=== PATIENT | female | born 1990 | race Caucasian/White ===

== ENCOUNTER 2017-08-08 10:56 | Emergency (ER) | payer SELFPAY ==
[~2017-08-08] VITALS: Ht 165.1 cm; Wt 61.2 kg
--- NOTE | 2017-08-08 11:00 | ED General ---
General Stated Complaint: VAG BLEEDING Allergies and Home Medications Allergies Coded Allergies: Penicillins (Verified Allergy, Unknown, 08/08/17) Home Medications No Active Prescriptions or Reported Meds Physical Exam Vital Signs Vital Signs - First Documented 08/08/17 11:01 Temp 98.1 Pulse 76 Resp 18 B/P (MAP) 112/83 (93) Pulse Ox 100 Capillary Refill : Progress/Results/Core Measures Suspected Sepsis SIRS Temperature: Pulse: Respiratory Rate: Laboratory Tests 08/08/17 11:16: White Blood Count 7.1 Blood Pressure / Mean: Laboratory Tests 08/08/17 11:16: Creatinine 0.74, Platelet Count 311, Total Bilirubin 0.9 Results/Orders Lab Results Laboratory Tests Test 08/08/17 11:16 Range/Units White Blood Count 7.1 4.3-11.0 10^3/uL Red Blood Count 4.26 L 4.35-5.85 10^6/uL Hemoglobin 11.8 11.5-16.0 G/DL Hematocrit 37 35-52 % Mean Corpuscular Volume 86 80-99 FL Mean Corpuscular Hemoglobin 28 25-34 PG Mean Corpuscular Hemoglobin Concent 32 32-36 G/DL Red Cell Distribution Width 19.3 H 10.0-14.5 % Platelet Count 311 130-400 10^3/uL Mean Platelet Volume 8.4 7.4-10.4 FL Neutrophils (%) (Auto) 68 42-75 % Lymphocytes (%) (Auto) 23 12-44 % Monocytes (%) (Auto) 7 0-12 % Eosinophils (%) (Auto) 1 0-10 % Basophils (%) (Auto) 0 0-10 % Neutrophils # (Auto) 4.8 1.8-7.8 X 10^3 Lymphocytes # (Auto) 1.7 1.0-4.0 X 10^3 Monocytes # (Auto) 0.5 0.0-1.0 X 10^3 Eosinophils # (Auto) 0.1 0.0-0.3 10^3/uL Basophils # (Auto) 0.0 0.0-0.1 10^3/uL Sodium Level 137 135-145 MMOL/L Potassium Level 4.2 3.6-5.0 MMOL/L Chloride Level 106 98-107 MMOL/L Carbon Dioxide Level 19 L 21-32 MMOL/L Anion Gap 12 5-14 MMOL/L Blood Urea Nitrogen 9 7-18 MG/DL Creatinine 0.74 0.60-1.30 MG/DL Estimat Glomerular Filtration Rate > 60 BUN/Creatinine Ratio 12 Glucose Level 84 70-105 MG/DL Calcium Level 9.3 8.5-10.1 MG/DL Total Bilirubin 0.9 0.1-1.0 MG/DL Aspartate Amino Transf (AST/SGOT) 77 H 5-34 U/L Alanine Aminotransferase (ALT/SGPT) 78 H 0-55 U/L Alkaline Phosphatase 74 40-136 U/L Total Protein 8.0 6.4-8.2 GM/DL Albumin 4.0 3.2-4.5 GM/DL Human Chorionic Gonadotropin, Quant < 5 <5 MIU/ML Serum Test, Qualitative NEGATIVE NEGATIVE My Orders Orders - CHECO EASON APRN Cbc With Automated Diff (08/08/17 10:57) Comprehensive Metabolic Panel (08/08/17 10:57) Ua Culture If Indicated (08/08/17 10:57) Hcg,Qualitative Serum (08/08/17 10:57) Hcg,Quantitative (08/08/17 11:02) Drug Screen Stat (Urine) (08/08/17 11:02) Wet Prep (08/08/17 11:42) Neisseria Gonorrhea Swab (08/08/17 11:42) Genital Culture (08/08/17 11:42) Chlamydia Trachomatis Urine (08/08/17 11:42) Vital Signs/I&O 08/08/17 08/08/17 11:01 11:54 Temp 98.1 Pulse 76 87 Resp 18 16 B/P (MAP) 112/83 (93) 125/78 Pulse Ox 100 98 Capillary Refill : Departure Communication (Admissions) 11:00 I have seen the patient with Fred SANCHEZ and agree with the assessment and plan. Patient arrives to ER per [facility] [address] [facility] [place] with reports of vaginal bleeding. She estimates herself to be between 3 and 4 months though she has not had a confirmed test. She is only used one tampon. She is traveling from [place] via bicycle to [place] when she developed the vaginal bleeding and is concerned this may represent a miscarriage. She believes she can feel the baby kicking and moving. Departure-Patient Inst. Referrals: NO,LOCAL PHYSICIAN (PCP/Family) Primary Care Physician Scripts No Active Prescriptions or Reported Meds CHECO EASON APRN Aug 08, 2017 11:00
--- NOTE | 2017-08-08 11:06 | ED GU-Female ---
General Stated Complaint: VAG BLEEDING Source: patient, EMS Exam Limitations: no limitations (FRED MARTÍNEZ STUDENT) History of Present Illness Date Seen by Provider: Aug 08, 2017 Time Seen by Provider: 10:59 Initial Comments Patient is a 27-year-old female who was brought to the emergency room by [facility] with complaints of vaginal bleeding. EMS reports that her are traveling through town on foot to [place] and they were at a local bank when she started to have vaginal bleeding and called EMS. She reports that she thinks she is 3-4 months but has not had a test to confirm this but can feel the baby moving. She is unsure of her last menstrual period but reports this bleeding to be very similar to her menstrual cycle. She reports that her and her boyfriend are homeless. Timing/Duration: just prior to arrival Severity/Quality: other (denies pain) Activities at Onset: none Sexual [place] Housing History: single partner Associated Symptoms: No fever/chills, No nausea/vomiting, No urinary frequency (FRED MARTÍNEZ) Allergies and Home Medications Allergies Coded Allergies: Penicillins (Verified Allergy, Unknown, 08/08/17) Home Medications No Active Prescriptions or Reported Meds Patient Home Medication List Home Medication List Reviewed: Yes (FRED MARTÍNEZ STUDENT) Review of Systems Constitutional: No see HPI, No fever, No malaise EENTM: no symptoms reported Respiratory: no symptoms reported Cardiovascular: see HPI; No chest pain Gastrointestinal: see HPI; No abdominal pain, No diarrhea, No nausea, No vomiting Genitourinary: see HPI; denies dysuria, denies frequency, denies pain, denies urgency Musculoskeletal: no symptoms reported Skin: see HPI; No rash Psychiatric/Neurological: See HPI; Denies Anxiety, Denies Depressed Endocrine: See HPI; Denies Excessive Sweating, Denies Flushing Hematologic/Lymphatic: See HPI, Anemia (FRED MARTÍNEZ STUDENT) Past Ssjclaw-Crgagg-Kykyjo Hx Past Med/Social Hx: Reviewed Nursing Past Med/Soc Hx (FRED MARTÍNEZ STUDENT) Family Medical History Reviewed Nursing Family Hx (FRED MARTÍNEZ) Physical Exam Vital Signs Vital Signs - First Documented 08/08/17 11:01 Temp 98.1 Pulse 76 Resp 18 B/P (MAP) 112/83 (93) Pulse Ox 100 (EASON,PETER J TRANSLATOR/INTERPRETER) Vital Signs Capillary Refill : (FRED MARTÍNEZ STUDENT) General Appearance: WD/WN, no apparent distress HEENT: normal ENT inspection, TMs normal, pharynx normal Neck: full range of motion, supple, normal inspection Cardiovascular: normal peripheral pulses, regular rate, rhythm, no edema, no murmur Respiratory: chest non-tender, lungs clear, normal breath sounds, no accessory muscle use Gastrointestinal: normal bowel sounds, non tender, soft, no pulsatile mass Back: normal inspection, no CVA tenderness, no vertebral tenderness Extremities: non-tender, normal inspection Neurologic/Psychiatric: alert, normal mood/affect, oriented x 3 Skin: normal color, warm/dry Lymphatic: no adenopathy (FRED MARTÍNEZ STUDENT) Progress/Results/Core Measures Suspected Sepsis SIRS Temperature: Pulse: Respiratory Rate: Blood Pressure / Mean: (FRED MARTÍNEZ STUDENT) Results/Orders Lab Results Laboratory Tests Test 08/08/17 11:16 Range/Units White Blood Count 7.1 4.3-11.0 10^3/uL Red Blood Count 4.26 L 4.35-5.85 10^6/uL Hemoglobin 11.8 11.5-16.0 G/DL Hematocrit 37 35-52 % Mean Corpuscular Volume 86 80-99 FL Mean Corpuscular Hemoglobin 28 25-34 PG Mean Corpuscular Hemoglobin Concent 32 32-36 G/DL Red Cell Distribution Width 19.3 H 10.0-14.5 % Platelet Count 311 130-400 10^3/uL Mean Platelet Volume 8.4 7.4-10.4 FL Neutrophils (%) (Auto) 68 42-75 % Lymphocytes (%) (Auto) 23 12-44 % Monocytes (%) (Auto) 7 0-12 % Eosinophils (%) (Auto) 1 0-10 % Basophils (%) (Auto) 0 0-10 % Neutrophils # (Auto) 4.8 1.8-7.8 X 10^3 Lymphocytes # (Auto) 1.7 1.0-4.0 X 10^3 Monocytes # (Auto) 0.5 0.0-1.0 X 10^3 Eosinophils # (Auto) 0.1 0.0-0.3 10^3/uL Basophils # (Auto) 0.0 0.0-0.1 10^3/uL Sodium Level 137 135-145 MMOL/L Potassium Level 4.2 3.6-5.0 MMOL/L Chloride Level 106 98-107 MMOL/L Carbon Dioxide Level 19 L 21-32 MMOL/L Anion Gap 12 5-14 MMOL/L Blood Urea Nitrogen 9 7-18 MG/DL Creatinine 0.74 0.60-1.30 MG/DL Estimat Glomerular Filtration Rate > 60 BUN/Creatinine Ratio 12 Glucose Level 84 70-105 MG/DL Calcium Level 9.3 8.5-10.1 MG/DL Total Bilirubin 0.9 0.1-1.0 MG/DL Aspartate Amino Transf (AST/SGOT) 77 H 5-34 U/L Alanine Aminotransferase (ALT/SGPT) 78 H 0-55 U/L Alkaline Phosphatase 74 40-136 U/L Total Protein 8.0 6.4-8.2 GM/DL Albumin 4.0 3.2-4.5 GM/DL Serum Test, Qualitative NEGATIVE NEGATIVE (CHECO EASON APRN) My Orders Orders - CHECO EASON APRN Cbc With Automated Diff (08/08/17 10:57) Comprehensive Metabolic Panel (08/08/17 10:57) Ua Culture If Indicated (08/08/17 10:57) Hcg,Qualitative Serum (08/08/17 10:57) Hcg,Quantitative (08/08/17 11:02) Drug Screen Stat (Urine) (08/08/17 11:02) Wet Prep (08/08/17 11:42) Neisseria Gonorrhea Swab (08/08/17 11:42) Genital Culture (08/08/17 11:42) Chlamydia Trachomatis Urine (08/08/17 11:42) (CHECO EASON APRN) Vital Signs/I&O 08/08/17 11:01 Temp 98.1 Pulse 76 Resp 18 B/P (MAP) 112/83 (93) Pulse Ox 100 (CHECO EASON APRN) Vital Signs/I&O Capillary Refill : (FRED MARTÍNEZ STUDENT) Departure Communication (Admissions) 11:00 I have seen the patient with Fred SANCHEZ and agree with the assessment and plan. Patient arrives to ER per [facility] [address] [facility] [place] with reports of vaginal bleeding. She estimates herself to be between 3 and 4 months though she has not had a confirmed test. She is only used one tampon. She is traveling from [place] via bicycle to [place] when she developed the vaginal bleeding and is concerned this may represent a miscarriage. She believes she can feel the baby kicking and moving. [id number] recommended a pelvic exam. Patient and her declined stating "were mostly just here for an ultrasound". They state "no one here has any compassion". We advised her that she was not and she states "well what have I been feeling move then?". They will sign out AGAINST MEDICAL ADVICE. (CHECO EASON APRN) Impression Primary Impression: Left against medical advice Disposition: 07 AGAINST MEDICAL ADVICE Condition: Against Medical Advice (,) Departure-Patient Inst. Referrals: NO,LOCAL PHYSICIAN (PCP/Family) Primary Care Physician Scripts No Active Prescriptions or Reported FRED Tejada STUDENT Aug 08, 2017 11:06 CHECO EASON APRN Aug 08, 2017 11:59
[2017-08-08 11:26] LABS: BASOPHILS % (AUTO) 0 % (0-10); EOSINOPHILS # (AUTO) 0.1 10^3/uL (0.0-0.3); EOSINOPHILS % (AUTO) 1 % (0-10); HEMATOCRIT 37 % (35-52); HEMOGLOBIN 11.8 G/DL (11.5-16.0); LYMPHOCYTES # (AUTO) 1.7 X 10^3 (1.0-4.0); LYMPHOCYTES % (AUTO) 23 % (12-44); MEAN CORPUSCULAR HEMOGLOBIN 28 PG (25-34); MEAN CORPUSCULAR HGB CONC 32 G/DL (32-36); MEAN CORPUSCULAR VOLUME 86 FL (80-99); MEAN PLATELET VOLUME 8.4 FL (7.4-10.4); MONOCYTES # (AUTO) 0.5 X 10^3 (0.0-1.0); MONOCYTES % (AUTO) 7 % (0-12); NEUTROPHILS # (AUTO) 4.8 X 10^3 (1.8-7.8); NEUTROPHILS % (AUTO) 68 % (42-75); PLATELET COUNT 311 10^3/uL (130-400); RED BLOOD COUNT 4.26 10^6/uL (4.35-5.85); RED CELL DISTRIBUTION WIDTH 19.3 % (10.0-14.5); WHITE BLOOD COUNT 7.1 10^3/uL (4.3-11.0)
[2017-08-08 11:47] LABS: ALANINE AMINOTRANSFERASE 78 U/L (0-55); ALKALINE PHOSPHATASE 74 U/L (40-136); BILIRUBIN,TOTAL 0.9 MG/DL (0.1-1.0); BUN/CREATININE RATIO 12; CALCIUM 9.3 MG/DL (8.5-10.1); CARBON DIOXIDE 19 MMOL/L (21-32); CHLORIDE 106 MMOL/L (98-107); CREATININE SERUM 0.74 MG/DL (0.60-1.30); GFR ESTIMATED > 60; GLUCOSE 84 MG/DL (70-105); POTASSIUM 4.2 MMOL/L (3.6-5.0); SODIUM 137 MMOL/L (135-145)
[2017-08-08 11:54] VITALS: BP 125/78
== END 2017-08-08 11:54 | disposition left against medical advice (07) ==
LOC: ER 10:58
DX: N93.9 Abnormal uterine and vaginal bleeding, unspecified (principal); Z88.0 Allergy status to penicillin
CPT/HCPCS: 36415; 80053; 84702; 84703; 85025; 99283

== ENCOUNTER 2018-03-05 15:56 | Inpatient (IN) | payer MEDICAID, OTHER | END 2018-03-08 14:45 | disposition home or self-care (01) | LOC: ER 15:56 → LDRP 17:30 ==

== ENCOUNTER 2018-03-12 18:50 | Emergency (ER) | payer MEDICAID ==
[~2018-03-12] VITALS: Ht 165.1 cm; Wt 63.5 kg
[~2018-03-12 18:50] MED LIST: ALPR0.254 PO; CIPR-225 PO; DOCU100C37 PO; IBUP-1780 PO; METR500T PO; OXYC1TAB87 PO; Trimethoprim/Sulfamethoxazole PO
[2018-03-12] MEDS ORDERED: ACETAMINOPHEN 500 MG TAB (TYLENOL) PO STA (19:12)
[2018-03-12] MEDS ORDERED: IBUPROFEN 800 MG (MOTRIN) TAB PO STA (19:12)
[2018-03-12] MEDS ORDERED: RECEIVED CONTRAST (Hold Metformin) IV SCH (19:30)
[2018-03-12] MEDS ORDERED: IOHEXOL 350 MG/ML 100 ML (OMNIPAQUE 350) VIAL IV ONE (19:30)
[2018-03-12] MEDS ORDERED: NS 100 ML (IVPB) BAG IV ONE (19:30)
[2018-03-12 19:34] LABS: BASOPHILS % (AUTO) 0 % (0-10); EOSINOPHILS % (AUTO) 0 % (0-10); HEMATOCRIT 31 % (35-52); HEMOGLOBIN 10.5 G/DL (11.5-16.0); LYMPHOCYTES # (AUTO) 1.4 X 10^3 (1.0-4.0); LYMPHOCYTES % (AUTO) 11 % (12-44); MEAN CORPUSCULAR HEMOGLOBIN 30 PG (25-34); MEAN CORPUSCULAR HGB CONC 34 G/DL (32-36); MEAN CORPUSCULAR VOLUME 88 FL (80-99); MEAN PLATELET VOLUME 8.5 FL (7.4-10.4); MONOCYTES # (AUTO) 0.8 X 10^3 (0.0-1.0); MONOCYTES % (AUTO) 6 % (0-12); NEUTROPHILS # (AUTO) 10.5 X 10^3 (1.8-7.8); NEUTROPHILS % (AUTO) 83 % (42-75); PLATELET COUNT 309 10^3/uL (130-400); RED BLOOD COUNT 3.52 10^6/uL (4.35-5.85); RED CELL DISTRIBUTION WIDTH 14.8 % (10.0-14.5); WHITE BLOOD COUNT 12.7 10^3/uL (4.3-11.0)
[2018-03-12 19:47] LABS: INR 1.1 (0.8-1.4); PROTHROMBIN TIME PATIENT 14.5 SEC (12.2-14.7)
[2018-03-12 19:54] LABS: ALANINE AMINOTRANSFERASE 16 U/L (0-55); ALBUMIN 2.8 GM/DL (3.2-4.5); ALKALINE PHOSPHATASE 118 U/L (40-136); AMYLASE 78 U/L (25-125); BILIRUBIN,TOTAL 0.4 MG/DL (0.1-1.0); BUN/CREATININE RATIO 10; CALCIUM 9.7 MG/DL (8.5-10.1); CARBON DIOXIDE 19 MMOL/L (21-32); CHLORIDE 107 MMOL/L (98-107); CREATININE SERUM 1.26 MG/DL (0.60-1.30); GFR ESTIMATED 51; GLUCOSE 105 MG/DL (70-105); LIPASE 46 U/L (8-78); MAGNESIUM 1.8 MG/DL (1.8-2.4); POTASSIUM 4.1 MMOL/L (3.6-5.0); SODIUM 139 MMOL/L (135-145); TOTAL PROTEIN 7.1 GM/DL (6.4-8.2)
--- NOTE | 2018-03-12 19:55 | NUR ---
HEARD SHOUTS AND CURSE WORDS FROM PT'S ROOM, ENTERED ROOM TO FIND THE PT CURSING AT DR. CROFT, STATING SHE WANTED TO CUT HER HEAD OFF. BEHAVIOR EXPLAINED UNACCEPTABLE. PT DISMISSES THIS NURSES WORDS, STATES SHE IS LEAVING. DR. CROFT ADVISED PT OF THE RISKS INVOLED, PT STATES I DONT GIVE A FUCK. PT REFUSES TO SIGN AMA FORM, PULLS OUT FOLLEY CATHETER, BALLOON NOTED TO BE STILL INFLATED, PT BEGINS TO RIP OUT ESTABLISHED IV SITE, REFUSES TO ALLOW THIS NURSE TO REMOVE. PT BEGINS TO BLEED PROFUSELY. STERILE GAUZE PACK GIVEN TO PT TO STOP THE BLLEDING. PT GIVEN HER CLOTHES TO GET DRESSED THIS NURSE LEAVES THE ROOM.
[2018-03-12 19:56] LABS: ACETAMINOPHEN < 10 UG/ML (10-30)
--- NOTE | 2018-03-12 19:58 | NUR ---
PT COMES INTO THE HALLWAY AND ENTERS ANOTHER PT'S ROOM NUDE. PT OFFERED A GOWN AND ENCOURAGED TO GET DRESSED. PT REFUSED TO GET DRESSED BUT ACCEPTS GOWN. PT'S BELONGINGS PLACED IN SACK AND GIVEN TO PT'S SPOUSE WHO IS IN THE WAITING ROOM. PT CONTINUES TO SCREAM AND CURSE SHE EXITS THE DEPARTMENT.
[2018-03-12 20:00] VITALS: BP 102/46
[2018-03-12 20:04] LABS: BILIRUBIN,URINE NEGATIVE (NEGATIVE); CLARITY,URINE CLEAR; COLOR,URINE YELLOW; GLUCOSE, URINE (UA) NEGATIVE (NEGATIVE); KETONES,URINE NEGATIVE (NEGATIVE); LEUKOCYTE ESTERASE ,URINE 1+ (NEGATIVE); NITRITE,URINE NEGATIVE (NEGATIVE); PH,URINE 6 (5-9); PROTEIN,URINE 2+ (NEGATIVE); UROBILINOGEN,URINE NORMAL (NORMAL)
[2018-03-12 20:16] LABS: BACTERIA,URINE NEGATIVE /HPF; RBC,URINE 0-2 /HPF
[2018-03-12 20:18] LABS: AMPHETAMINE SCREEN, URINE POSITIVE (NEGATIVE); BARBITURATE SCREEN URINE NEGATIVE (NEGATIVE); BENZODIAZEPINES SCREEN URINE POSITIVE (NEGATIVE); CANNABINOID SCREEN, URINE NEGATIVE (NEGATIVE); COCAINE SCREEN URINE NEGATIVE (NEGATIVE); METHADONE STAT NEGATIVE (NEGATIVE); METHAMPHETAMINE SCREEN URINE S POSITIVE (NEGATIVE); OPIATE SCREEN URINE NEGATIVE (NEGATIVE); OXYCODONE STAT NEGATIVE (NEGATIVE); PROPOXYPHENE STAT NEGATIVE (NEGATIVE); TRICYCLIC ANTIDEPRESSANTS SCRE NEGATIVE (NEGATIVE)
--- NOTE | 2018-03-12 20:32 | Diagnostic Imaging Report ---
INDICATION: Sepsis. COMPARISON: 03/05/2018. EXAMINATION: Single view of the chest was obtained. FINDINGS: Mild cardiac enlargement. The lungs are clear. There is no pneumothorax. The osseous structures are normal. IMPRESSION: Mild cardiac enlargement without pulmonary edema or infiltrate. Dictated by: Dictated on workstation # [id number]
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
== END 2018-03-12 20:06 | disposition left against medical advice (07) ==
LOC: EDUNIT# 18:50 → ER 18:51
DX: O99.89 Other specified diseases and conditions complicating pregnancy, childbirth and the puerperium (principal); M25.551 Pain in right hip; O99.53 Diseases of the respiratory system complicating the puerperium; J45.909 Unspecified asthma, uncomplicated; F41.9 Anxiety disorder, unspecified; O99.63 Diseases of the digestive system complicating the puerperium; B19.20 Unspecified viral hepatitis C without hepatic coma; O99.325 Drug use complicating the puerperium; F12.10 Cannabis abuse, uncomplicated; F15.10 Other stimulant abuse, uncomplicated; O99.335 Smoking (tobacco) complicating the puerperium; F17.210 Nicotine dependence, cigarettes, uncomplicated; Z88.0 Allergy status to penicillin; Z86.14 Personal history of Methicillin resistant Staphylococcus aureus infection
CPT/HCPCS: 36415; 71045; 80053; 80306; 80320; 80329; 81000; 82150; 83690; 83735; 85025; 85610; 85730; 87040